=== PATIENT | female | born 1965 | race Caucasian/White ===

== ENCOUNTER 2019-05-21 12:47 | Outpatient (CLI) | payer BC, SELFPAY | END 2019-05-21 12:48 | disposition home or self-care (01) | LOC: CHSCARD 12:51 | PROVIDERS: PCP Internal Medicine; Visit Provider Internal Medicine Pulmonary Disease | DX: J44.9 Chronic obstructive pulmonary disease, unspecified (principal); J45.991 Cough variant asthma | CPT/HCPCS: 94060; 94726; 94729 ==

== ENCOUNTER 2020-08-30 10:14 | Outpatient (CLI) | payer BC, SELFPAY ==
--- NOTE | ~2020-08-30 | US_ITS ---
EXAMINATION: US venous doppler [facility] DATE: 08/30/2020 10:43 INDICATION: Bilateral lower limb swelling TECHNIQUE: Choudhary scale images without and with compression and Doppler images of the bilateral lower e xtremity veins were obtained. COMPARISON: None FINDINGS: The right common femoral vein, profunda femoral vein, femoral vein, popliteal vein, peroneal trunk, p osterior tibial veins, and greater saphenous vein are patent. The left common femoral vein, profunda femoral vein, femoral vein, popliteal vein, peroneal trunk, po sterior tibial veins, and greater saphenous vein are patent. IMPRESSION: 1. Patent bilateral lower extremity veins. No evidence of deep venous thrombosis. Reviewed, dictated and finalized at location A. IMPRESSION: 1. Patent bilateral lower extremity veins. No evidence of deep venous thrombosi s.
== END 2020-08-30 10:15 | disposition home or self-care (01) ==
LOC: CHSIMG 10:17
PROVIDERS: PCP Internal Medicine; Visit Provider Internal Medicine
DX: M79.89 Other specified soft tissue disorders (principal)
CPT/HCPCS: 93970

== ENCOUNTER 2023-06-05 13:39 | Emergency (ER) | payer BC, SELFPAY ==
[2023-06-05] VITALS (33 sets, daily range): BP systolic 135–175; BP diastolic 60–103; PULSE 84–91; RESP 20; TEMP 36.4; O2SAT 86–95
--- NOTE | ~2023-06-05 | XR_ITS ---
EXAMINATION: XR chest 1V portable DATE: 06/05/2023 14:21 INDICATION: Shortness of breath. TECHNIQUE: A single frontal view of the chest was obtained. COMPARISON: None. FINDINGS: There is a nodule in right midlung zone. No pleural effusion or pneumothorax. The heart siz e is normal. Calcified left hilar lymph nodes are consistent with old granulomatous disease. IMPRESSION: 1. Nodule in right midlung zone, which is indeterminate for malignancy. Noncontrast chest CT is recom mended. Reviewed, dictated and finalized at location A. [employer] IMPRESSION: 1. Nodule in right midlung zone, which is indeterminate for malignancy. Noncont rast chest CT is recommended.
--- NOTE | ~2023-06-05 | CT_ITS ---
EXAMINATION: CTA chest PE protocol DATE: 06/05/2023 17:03 INDICATION: Shortness of breath. TECHNIQUE: Computed tomography angiography (CTA) of the chest was performed with 100 mL Omnipaque-350 intravenous contrast timed to evaluate the pulmonary arteries. Coronal maximum intensity projection 3D-reconstructions were created by the technologist. Automated exposure control and iterative reconst ruction technique were employed. The dose-length product was 873.07 mGy-cm. COMPARISON: Chest single view 06/05/2023 FINDINGS: There is a bulla in right lung abutting the mediastinum. There are scattered nodules in the right lung and left lower lobe, consistent with pneumonia. Calcified left hilar lymph nodes are cons istent with old granulomatous disease. No pleural effusion. The heart size is normal. There are coron jarett artery calcifications. No pericardial effusion. Calcifications in the spleen are consistent with old granulomatous disease. There are gallstones in the gallbladder, which is normal in size. Left thy roid lobe is enlarged. There is no pulmonary embolus. There is kyphosis and severe spondylosis of tho racic spine. IMPRESSION: 1. No pulmonary embolus. 2. Scattered nodules in right lung and left lower lobe, consistent with pneumonia. Reviewed, dictated and finalized at location A. LVENCY PRACTITIONER IMPRESSION: 1. No pulmonary embolus. 2. Scattered nodules in right lung and left lower lobe, consistent with pneumon ia.
--- NOTE | 2023-06-05 13:51 | ED.SOB ---
HPI - SOB/Dyspnea General Chief Complaint: Shortness of Breath/Dyspnea Stated Complaint: short of breath; low 02 Time Seen by Provider: 06/05/23 13:50 Source: patient Mode of arrival: ambulatory Limitations: no limitations History of Present Illness HPI Narrative: 57-year-old female, smoker with a history of hypertension, dyslipidemia, COPD (with an FEV1 /FVC of 1.84/3.22 to with a ratio of 57% with a normal DLCO), arthritis was diagnosed to have influenza last week for which she received steroids and Tamiflu. The patient presented to her primary care with -- ongoing shortness of breath without any improvement with steroids. Patient takes her usual nebulizer treatment and Trelegy -- cough which is currently productive of yellow sputum no fever or chills. No chest pain. -- Patient is oxygenating 88-92% on room air. -- Dizzy on exertion. Chronic bilateral leg swelling MD elicited complaint: shortness of breath and cough Pertinent past history: COPD Onset (ago): week(s) ( One week) Context: recent illness ( tested positive for influenza A.) Timing: constant Severity: moderate Exacerbating factors: exertion, movement and coughing Relieving factors: nothing and bronchodilators Known history of: COPD Associated symptoms: denies other symptoms, cough and sputum production Related Data Home oxygen amount: none Home Medications Medication Instructions Recorded Confirmed albuterol sulfate 2.5 mg/3 mL 2.5 mg inhalation QID 06/05/23 06/05/23 (0.083 %) solution for nebulization arformoterol 15 mcg/2 mL solution 15 mcg inhalation BID 06/05/23 06/05/23 for nebulization budesonide 0.5 mg/2 mL suspension 0.5 mg inhalation BID 06/05/23 06/05/23 for nebulization fluticasone fur. 100 mcg-umeclid 1 inh inhalation DAILY 06/05/23 06/05/23 62.5 mcg-vilant 25 mcg inhalat.powder (Trelegy Ellipta) ipratropium 0.5 mg-albuterol 3 mg 3 ml inhalation BID 06/05/23 06/05/23 (2.5 mg base)/3 mL nebulization soln montelukast 10 mg tablet 10 mg PO DAILY 06/05/23 06/05/23 tiotropium bromide 18 mcg capsule 18 mcg inhalation DAILY 06/05/23 06/05/23 with inhalation device (Spiriva with HandiHaler) Allergies Allergy/AdvReac Type Severity Reaction Status Date / Time codeine Allergy Unknown Verified 06/05/23 14:07 Review of Systems Review of Systems: All systems reviewed & are unremarkable except as noted in HPI and below Constitutional: Constitutional: Reports as per HPI, Reports no additional constitutional complaints and Reports weakness Eyes: Eyes: Reports as per HPI and Reports no additional eye complaints ENT: Reports system reviewed and no additional complaints, except as documented and Reports as per HPI Cardiovascular: Cardiovascular: Reports as per HPI and Reports no additional cardiovascular complaints Respiratory: Respiratory: Reports as per HPI, Reports no additional respiratory complaints, Reports cough, Reports dyspnea and Reports wheezing Gastrointestinal: Gastrointestinal: Reports as per HPI and Reports no additional gastrointestinal complaints Genitourinary: Genitourinary: Reports no additional female genitourinary complaints and Reports as per HPI Musculoskeletal: Musculoskeletal: Reports no additional musculoskeletal complaints and Reports as per HPI Integumentary/Breasts: Skin/Breast: Reports system reviewed and no additional complaints, except as docu and Reports as per HPI Neurologic: Reports system reviewed and no additional complaints, except as documented and Reports as per HPI Psychiatric: Psychiatric: Reports no additional psychiatric complaints and Reports as per HPI Endocrine: Endocrine: Reports no additional endocrine complaints and Reports as per HPI Hematologic/Lymphatic: Hematologic/Lymphatic: Reports no additional hematologic/lymphatic complaints and Reports as per HPI Allergic/Immunologic: Allergic/Immunologic: Reports no additional allergic/immunologic complaints and Reports as per
--- NOTE | 2023-06-05 14:12 | ECG_ITS ---
Measurements Intervals [place] Rate: 86 P: -30 LA: 111 QRS: 55 QRSD: 94 T: 51 QT: 348 QTc: 417 Interpretive Statements SINUS RHYTHM WITH SHORT LA INTERVAL NO PREVIOUS ECG AVAILABLE FOR COMPARISON Electronically Signed On 06-05-2023 16:17:38 [employer] by Rosalie Hu M.D.
[2023-06-05 14:40] LABS: Hematocrit 47.2 % (35.0-49.0); Hemoglobin 15.2 g/dL (12.0-15.0); Mean Corpuscular HGB Conc 32.2 g/dL (32.0-36.0); Mean Corpuscular Hemoglobin 26.8 pg (27.0-31.0); Mean Corpuscular Volume 83.2 fL (78.0-102.0); Mean Platelet Volume 11.4 fl (9.2-11.8); Platelet Count Result 192 K/mm3 (150-420); Red Blood Count 5.67 M/mm3 (4.20-5.40); Red Cell Distribution Width 16.2 % (11.6-14.4); White Blood Count 11.6 K/mm3 (4.8-10.8)
[2023-06-05 14:52] LABS: Base Excess ABG 3.6 mmol/L (0-2); HCO3 ABG 27.7 mmol/L (23-29); Oxygen Content ABG 20.2 %vol (16.0-22.0); Oxygen Saturation ABG 90.7 % (95-97); Oxyhemoglobin 89.5 % (94-100); PO2 ABG 56.9 mmHg (80-90); Total Hemoglobin 16.1 g/dL (12.0-18.0); pH ABG 7.46 (7.35-7.45)
[2023-06-05 14:53] LABS: Device ROOM AIR; Modified Allen's Test Pass; Site Drawn LEFT RADIAL
[2023-06-05] MEDS: IPRATROPIUM 0.5 MG/ALBUTEROL SULFATE 2.5 MG AMPUL.NEB 3 ML INHALATION (14:57)
[2023-06-05 14:58] LABS: Partial Thromboplastin Time 24.5 SEC (23.90-30.70); Prothrombin Time 11.2 Seconds (9.50-12.10)
[2023-06-05 15:01] LABS: D Dimer 0.46 mg/L (0.19-0.50)
[2023-06-05 15:06] LABS: Lactic Acid Reflex 0.8 mmol/L (0.4-2.0)
[2023-06-05 15:08] LABS: Alanine Aminotransferase 53 U/L (14-59); Albumin Level 2.9 g/dL (3.4-5.0); Alkaline Phosphatase 83 U/L (46-116); Anion Gap 8 mmol/L (8-16); Aspartate Amino Transferase 15 U/L (15-37); Bilirubin,Total 0.5 mg/dL (0.00-1.00); Blood Urea Nitrogen 12 mg/dL (7-18); Carbon Dioxide 29 mmol/L (21-32); Chloride 104 mmol/L (98-108); Estimated CRCL calculation 107 ml/min; Estimated Glomerular Filt Rate > 60; Glucose 132 mg/dL (70-99); Lipase 18 U/L (16-77); NT Pro B Type Natriuretic Pept 301 pg/mL (0-125); Osmolality Calculated 293 mOsm/kg (285-295); Potassium 4.1 mmol/L (3.5-5.1); Sodium 141 mmol/L (136-145); Total Protein 7.2 g/dL (6.4-8.2); Troponin I 8.3 ng/L (0.00-60.4)
[2023-06-05 15:11] LABS: SARS-CoV-2 RNA PCR Negative (Negative)
[2023-06-05 15:17] LABS: Influenza A QL RT-PCR Negative (Negative); Influenza B QL RT-PCR Negative (Negative); RSV RNA, RT-PCR Negative (Negative)
[2023-06-05 15:17] LABS: Band Neutrophils Percent 0 % (0-6); Basophils Percent Manual 0 % (0-1); Eosinophils Percent Manual 0 % (1-6); Lymphocytes Absolute Manual 1.04 K/mm3 (1.1-4.5); Lymphocytes Percent Manual 9 % (18-44); Monocytes Absolute Manual 0.23 K/mm3 (0.1-0.90); Monocytes Percent Manual 2 % (3-9); Neutrophils Absolute Manual 10.32 K/mm3 (1.7-7.2); Neutrophils Percent Manual 89 % (46-73); Platelet Estimate Adequate (Adequate); Total Cells Counted 100
--- NOTE | 2023-06-05 15:53 | PC.NURSE ---
PT IS TALKING WITH MOTHER AT BEDSIDE, AWAITING ERP DECISION.
[2023-06-05] MEDS: methylPREDNISolone SOD SUCC 125 MG VIAL IV PUSH (16:18)
[2023-06-05] MEDS: LACTATED RINGERS 500 ML 999 ML IV CONT (17:07)
[2023-06-05] MEDS: AZITHROMYCIN 500 MG/NS 250 ML 500 MG/250 ML BAG 250 MG IVPB (17:08)
--- NOTE | 2023-06-05 17:30 | PC.NURSE ---
PT HAS RETURNED FROM CT, DENIES ANY NEEDS OR COMPLAINTS. IV MEDICATION INFUSING ORDERED WITHOUT DIFFICULTY. MOTHER AT BEDSIDE. PT IS AWAITING RESULTS AT THIS TIME. SODA PROVIDED. WILL CONTINUE TO MONITOR. ERP IS AWARE OF VS.
--- NOTE | 2023-06-05 18:20 | PC.NURSE ---
ERP HAS SPOKEN WITH PT AND REVIEWED RESULTS. PT TO BE DC HOME.
== END 2023-06-05 18:25 | disposition home or self-care (01) ==
PROVIDERS: Emergency Provider Internal Medicine Critical Care Medicine; PCP Internal Medicine
DX: J18.9 Pneumonia, unspecified organism (principal); R91.8 Other nonspecific abnormal finding of lung field; J44.9 Chronic obstructive pulmonary disease, unspecified; E78.5 Hyperlipidemia, unspecified; I10 Essential (primary) hypertension; F17.210 Nicotine dependence, cigarettes, uncomplicated; Z79.899 Other long term (current) drug therapy; Z20.822 Contact with and (suspected) exposure to COVID-19
CPT/HCPCS: 36415; 36600; 71045; 71275; 80053; 82805; 83605; 83690; 83880; 84484; 85025; 85380; 85610; 85730; 87637; 93005; 96365; 96367; 96375; 99284; J0456; J0696; J2930; J7120; Q9967